=== PATIENT | female | born 1940 | race Caucasian/White ===

== ENCOUNTER 2017-12-04 08:34 | Observation (INO) ==
[2017-12-04] MEDS ORDERED: 0.9 % Sodium Chloride 1,000 ML IVC ONE (09:00)
--- NOTE | 2017-12-04 09:07 | Emergency Department Note ---
Disposition Clinical Impression: Diverticulitis Disposition: Admitted As Inpatient Condition: Good Referrals: Brandon Mathis MD [Primary Care Provider] - Forms: ED Satisfaction Letter, Work/School Release Time of Disposition: 13:44 General Adult HPI - General Chief complaint: ED Abdominal Pain Stated complaint: abd pain, black stool Time Seen by Provider: 12/04/17 08:41 Source: patient Limitations: no limitations Nursing Notes Reviewed: Yes Vital Signs Reviewed: Yes - History of Present Illness HPI Narrative: Patient presents to the ED with a chief complaint of abdominal pain and dark stools. Patient started last night with some lower abdominal pain. Today she passed some dark tarry stool. She seen Dr. selby for the same in the past. His been taken off her blood thinners except for Plavix. Patient denies any history of atrial fibrillation. Pain Scale: 4 - Related Data Home Medications Medication Instructions Recorded Confirmed Cholecalciferol (Vitamin D3) 2,000 unit PO DAILY 05/02/15 11/05/17 [Vitamin D] Clopidogrel [Plavix] 75 mg PO DAILY 05/02/15 11/05/17 Nitroglycerin [Nitrostat] 0.4 mg SL Q5M PRN 05/02/15 11/05/17 [place]-3S/Dha/Epa/Fish Oil [Fish 1 each PO DAILY 05/02/15 11/05/17 Oil 1,200 mg Softgel] Ranitidine HCl [Zantac] 150 mg PO DAILY 05/02/15 11/05/17 Atenolol/Chlorthalidone [Tenoretic 1 each PO DAILY 11/06/16 11/05/17 50 Tablet] Calcium Carbonate/Vitamin D3 1 each PO DAILY 11/06/16 11/05/17 [Calcium 600 + Vit D Tablet] Simvastatin [Zocor] 10 mg PO DAILY 11/06/16 11/05/17 Cetirizine HCl [All Day Allergy] 10 mg PO DAILY 05/07/17 11/05/17 Fluticasone Propionate Nasal 2 spr NS DAILY 05/07/17 11/05/17 [Flonase] Previous Rx's Medication Instructions Recorded Hydroxyurea [Hydrea] 500 mg PO DAILY #30 capsule 06/11/17 Beclomethasone Diprop 80mcg [QVAR 1 puff IH BID #1 inhaler 11/05/17 80 mcg] Allergies Allergy/AdvReac Type Severity Reaction Status Date / Time Iodinated Contrast- Oral and Allergy Hives Verified 12/04/17 08:36 IV Dye [Iodinated Contrast Media - Oral and] latex Allergy Rash Verified 12/04/17 08:36 Nickel Allergy Rash Verified 12/04/17 08:36 Procaine Allergy Rash Verified 12/04/17 08:36 Sulfa (Sulfonamide Allergy Vomiting Verified 12/04/17 08:36 Antibiotics) All systems ED: reviewed and negative except as stated. Constitutional: Denies: fever Cardiovascular: Denies: chest pain Respiratory: Denies: dyspnea Gastrointestinal: Reports: abdominal pain, melena. Denies: nausea Past Medical History - Past Medical History Medical history: Reports: hypertension, myocardial infarction Psychiatric history: Reports: no psych history - Social History Smoking Status: 2nd Hand Smoke Exposure Smokeless Tobacco Status: No Alcohol use: Reports: none Drug use: Reports: none Physical Exam Patient in no acute distress and he wanted him up with stable - General Limitations: no limitations General appearance: alert, in no apparent distress - Head Head exam: atraumatic, normocephalic - Eye Eye exam: Present: normal appearance - ENT ENT exam: normal exam, normal oropharynx - Neck Neck exam: Present: normal inspection - Chest Chest inspection: Present: normal inspection - Respiratory Respiratory exam: Present: normal lung sounds bilaterally - Cardiovascular Cardiovascular exam: Present: regular rate, normal rhythm, normal heart sounds - Abdominal Exam Abdominal exam: Present: soft, tenderness (Left upper). Absent: guarding, rebound - Rectal Exam Behavior Interventionist present during exam: Yes Rectal exam: Present: normal rectal tone, heme (-) stool, other (No stool in rectal vault. Mucus Hemoccult-negative) - Neurological Exam Neurological exam: Present: alert, oriented X3 - Psychiatric Psychiatric exam: Present: normal affect - Skin Skin exam: Present: warm, dry Course Course Narrative: Admit. Patient complains of passing blood by Hemoccult negative here. He will in stable. Has not had a bowel movement since yesterday. We will observe. Cipro/Flagyl ordered. - Reevaluation(s) Reevaluation #1: Patient reevaluated. No bowel movement here. Rectal exam shows no stool in the rectal vault. We will check CT. Time: 12:01 Reevaluation #2: Patient with diverticulitis and a GI bleed. Patient on Plavix. We will admit. Time: 13:34 - Consultations Consultation #1: Dr Alexander accepts Time: 13:44 Vital Signs Temperature 98.2 F 12/04/17 08:36 Pulse Rate 70 12/04/17 08:36 Respiratory Rate 20 12/04/17 08:36 Blood Pressure 135/77 12/04/17 08:36 O2 Sat by Pulse Oximetry 96 12/04/17 08:36 Temperature 98.2 F 12/04/17 08:55 Pulse Rate 70 12/04/17 08:55 Respiratory Rate 20 12/04/17 08:55 Blood Pressure 135/77 12/04/17 08:55 O2 Sat by Pulse Oximetry 96 12/04/17 08:55 Oxygen Delivery Oxygen Delivery Room Air Medical Decision Making - Medical Records Medical records reviewed: Yes I reviewed the patient's medical records. - Lab Data Lab results reviewed: Yes I reviewed the patient's lab results. Result diagrams: 12/04/17 09:00 12/04/17 09:00 Lab Results 12/04/17 12/04/17 12/04/17 Range/Units 09:00 09:00 09:00 WBC 10.1 (4.3-11.1) K/mcL RBC 3.55 L (3.82-4.97) M/mcL Hgb 14.0 (11.5-15.4) g/dL Hct 39.7 (35.3-44.9) % MCV 111.8 H (83.0-100.0) fL MCH 39.4 H (28.0-33.3) pg MCHC 35.3 (31.6-35.5) g/dL RDW 11.2 L (11.5-14.5) % Plt Count 250 (140-400) K/mcL MPV 8.8 L (9.4-12.4) fL Seg Neutrophils % 72.0 % Lymphocytes % 16.0 % Monocytes % 10.0 % Eosinophils % 2.0 % Neutrophils # 7.3 (1.6-8.9) K/mcL Lymphocytes # 1.6 (0.6-4.6) K/mcL Monocytes # 1.0 (0.0-1.3) K/mcL Eosinophils # 0.2 (0.0-0.6) K/mcL Platelet Estimate Normal (Normal) Macrocytosis Present A (Not Present) PT 11.9 (9.4-12.1) Seconds INR 1.1 APTT 36.0 (26.0-36.0) Seconds Sodium 137 (136-145) mEq/L Potassium 3.6 (3.5-5.1) mEq/L Chloride 99 (98-107) mEq/L Carbon Dioxide 26 (23-29) mEq/L BUN 25 H (8-23) mg/dL Creatinine 1.10 (0.60-1.20) mg/dL Est GFR ( Amer) 59 L (> 60) Est GFR (Non-Af Amer) 48 L (> 60) BUN/Creatinine Ratio 23 (6-26) Glucose 110 H (70-105) mg/dL Calculated Osmolality 289 (280-300) Calcium 9.8 (8.6-10.3) mg/dL Total Bilirubin 1.0 (0.3-1.0) mg/dL Direct Bilirubin 0.1 (0.0-0.2) mg/dL Indirect Bilirubin 0.9 (0.0-1.2) mg/dL AST 24 (13-39) Units/L ALT 18 (7-52) Units/L Alkaline Phosphatase 75 (34-104) Units/L Troponin I < 0.03 (< 0.04) ng/mL Serum Total Protein 7.6 (6.4-8.9) g/dL Albumin 4.8 (3.5-5.7) g/dL Globulin 2.8 (2.4-3.5) g/dL Albumin/Globulin Ratio 1.7 (1.1-2.2) Lipase 38 (11-82) Units/L Urine Color (Yellow) Urine Clarity (Clear) Urine pH (5.0-8.0) pH Units Ur Specific [place] (1.010-1.025) Urine Protein (Neg-Trace) mg/dL Urine Glucose (UA) (Normal) mg/dL Urine Ketones (Negative) mg/dL Urine Blood (Negative) Urine Nitrite (Negative) Urine Bilirubin (Negative) Urine Urobilinogen (Normal) mg/dL Ur Leukocyte Esterase (Negative) Ur Culture Indicated? (NO) 12/04/17 Range/Units 11:42 WBC (4.3-11.1) K/mcL RBC (3.82-4.97) M/mcL Hgb (11.5-15.4) g/dL Hct (35.3-44.9) % MCV (83.0-100.0) fL MCH (28.0-33.3) pg MCHC (31.6-35.5) g/dL RDW (11.5-14.5) % Plt Count (140-400) K/mcL MPV (9.4-12.4) fL Seg Neutrophils % % Lymphocytes % % Monocytes % % Eosinophils % % Neutrophils # (1.6-8.9) K/mcL Lymphocytes # (0.6-4.6) K/mcL Monocytes # (0.0-1.3) K/mcL Eosinophils # (0.0-0.6) K/mcL Platelet Estimate (Normal) Macrocytosis (Not Present) PT (9.4-12.1) Seconds INR APTT (26.0-36.0) Seconds Sodium (136-145) mEq/L Potassium (3.5-5.1) mEq/L Chloride (98-107) mEq/L Carbon Dioxide (23-29) mEq/L BUN (8-23) mg/dL Creatinine (0.60-1.20) mg/dL Est GFR ( Amer) (> 60) Est GFR (Non-Af Amer) (> 60) BUN/Creatinine Ratio (6-26) Glucose (70-105) mg/dL Calculated Osmolality (280-300) Calcium (8.6-10.3) mg/dL Total Bilirubin (0.3-1.0) mg/dL Direct Bilirubin (0.0-0.2) mg/dL Indirect Bilirubin (0.0-1.2) mg/dL AST (13-39) Units/L ALT (7-52) Units/L Alkaline Phosphatase (34-104) Units/L Troponin I (< 0.04) ng/mL Serum Total Protein (6.4-8.9) g/dL Albumin (3.5-5.7) g/dL Globulin (2.4-3.5) g/dL Albumin/Globulin Ratio (1.1-2.2) Lipase (11-82) Units/L Urine Color Yellow (Yellow) Urine Clarity Clear (Clear) Urine pH 6.5 (5.0-8.0) pH Units Ur Specific [place] 1.014 (1.010-1.025) Urine Protein Negative (Neg-Trace) mg/dL Urine Glucose (UA) Normal (Normal) mg/dL Urine Ketones Negative (Negative) mg/dL Urine Blood Negative (Negative) Urine Nitrite Negative (Negative) Urine Bilirubin Negative (Negative) Urine Urobilinogen Normal (Normal) mg/dL Ur Leukocyte Esterase Negative (Negative) Ur Culture Indicated? NO (NO) - Radiology Data Radiology results reviewed: Yes I reviewed the patient's radiology results. Abdomen/Pelvis CT 12/04/17 12:00 IMPRESSION: 1. Acute diverticulitis near the splenic flexure. 2. Cholelithiasis. 3. Hiatal hernia. 4. Suspected mucus plugging in the right lower lobe bronchi. 5. Atherosclerotic disease. D/ / Yoan Goins MD / Yoan Goins MD Interpreting Provider: Yoan Goins MD Critical Care Time Critical Care Time: No
[2017-12-04 09:34] LABS: Eosinophils # 0.2 K/mcL (0.0-0.6); Hematocrit 39.7 % (35.3-44.9); Mean Corpuscular HGB Conc 35.3 g/dL (31.6-35.5); Mean Corpuscular Hemoglobin 39.4 pg (28.0-33.3); Mean Corpuscular Volume 111.8 fL (83.0-100.0); Mean Platelet Volume 8.8 fL (9.4-12.4); Platelet Count 250 K/mcL (140-400); Red Blood Count 3.55 M/mcL (3.82-4.97); Red Cell Distribution Width 11.2 % (11.5-14.5)
[2017-12-04 09:38] LABS: INR 1.1; Prothrombin Time 11.9 Seconds (9.4-12.1)
[2017-12-04 09:53] LABS: Troponin I < 0.03 ng/mL (< 0.04)
[2017-12-04 10:20] LABS: Alanine Aminotransferase 18 Units/L (7-52); Albumin 4.8 g/dL (3.5-5.7); Albumin/Globulin Ratio 1.7 (1.1-2.2); Alkaline Phosphatase 75 Units/L (34-104); Aspartate Amino Transferase 24 Units/L (13-39); BUN/Creatinine Ratio 23 (6-26); Bilirubin,Direct 0.1 mg/dL (0.0-0.2); Bilirubin,Indirect 0.9 mg/dL (0.0-1.2); Blood Urea Nitrogen 25 mg/dL (8-23); Calcium 9.8 mg/dL (8.6-10.3); Carbon Dioxide 26 mEq/L (23-29); Chloride 99 mEq/L (98-107); Globulin 2.8 g/dL (2.4-3.5); Glucose 110 mg/dL (70-105); Lipase 38 Units/L (11-82); Osmolality,Calculated 289 (280-300); Potassium 3.6 mEq/L (3.5-5.1); Sodium 137 mEq/L (136-145); Total Protein 7.6 g/dL (6.4-8.9); eGFR For African Americans 59 (> 60); eGFR For Non-African Americans 48 (> 60)
[2017-12-04 10:22] LABS: Lymphocytes # 1.6 K/mcL (0.6-4.6); Neutrophils # 7.3 K/mcL (1.6-8.9)
[2017-12-04 10:24] LABS: Macrocytosis Present (Not Present); Platelet Estimate Normal (Normal)
[2017-12-04 12:09] LABS: Bilirubin,Urine Negative (Negative); Blood,Urine Negative (Negative); Clarity,Urine Clear (Clear); Color,Urine Yellow (Yellow); Glucose,Urine (UA) Normal (Normal); Ketones,Urine Negative (Negative); Leukocyte Esterase,Urine Negative (Negative); Nitrite,Urine Negative (Negative); PH,Urine 6.5 pH Units (5.0-8.0); Protein,Urine Negative (Neg-Trace); Specific Gravity,Urine 1.014 (1.010-1.025); Urobilinogen,Urine Normal (Normal)
[2017-12-04] MEDS ORDERED: MetroNIDAZOLE 500 MG/100 ML 500 MG/100 ML BAG IVPB ONE (13:35)
--- NOTE | 2017-12-04 14:03 | Internal Med History&Physical ---
Date of Encounter: 12/04/17 Time of Encounter: 14:03 Internal Medicine - H&P: HPI Chief complaint: Abdominal pain History of present illness: Ms. Still is a 77 year old female Patient presents to the ED with a chief complaint of abdominal pain and dark stools. Patient started last night with some lower abdominal pain. Today she passed some dark tarry stool. She seen Dr. selby for the same in the past. His been taken off her blood thinners except for Plavix. Patient denies any history of atrial fibrillation. Past Med Surg Social Fam HX - Past Medical History Medical history: hypertension, myocardial infarction Psychiatric history: no psych history - Social History Smoking Status: 2nd Hand Smoke Exposure Smokeless Tobacco Status: No Alcohol use: none Drug use: none - Family History Mother Hx Family GI Disorders: Yes (Colon cancer) Internal Medicine - H&P: Meds Cholecalciferol (Vitamin D3) [Vitamin D3] 2,000 unit PO DAILY 05/02/15 [History] Clopidogrel [Plavix] 75 mg PO DAILY 05/02/15 [History] Nitroglycerin [Nitrostat] 0.4 mg SL Q5M PRN 05/02/15 [History] [place]-3S/Dha/Epa/Fish Oil [Fish Oil 1,200 mg Softgel] 1 cap PO DAILY 05/02/15 [ History] Ranitidine HCl [Zantac] 150 mg PO DAILY 05/02/15 [History] Calcium Carbonate/Vitamin D3 [Calcium 600 + Vit D Tablet] 1 each PO DAILY [History] Simvastatin [Zocor] 10 mg PO DAILY 11/06/16 [History] Cetirizine HCl [All Day Allergy] 10 mg PO DAILY 05/07/17 [History] Hydroxyurea [Hydrea] 500 mg PO DAILY #30 capsule 06/11/17 [Rx] Albuterol Sulfate [Ventolin Hfa] 2 puff IH Q6H PRN 12/04/17 [History] Atenolol/Chlorthalidone [Tenoretic 50 Tablet] 1 tab PO DAILY 12/04/17 [History] Ciprofloxacin [Cipro] 500 mg PO BID #20 tablet 12/06/17 [Rx] Omeprazole [PriLOSEC] 20 mg PO DAILY 30 Days #30 cap 12/06/17 [Rx] metroNIDAZOLE [Flagyl] 500 mg PO TID #30 tablet 12/06/17 [Rx] 3 Allergy/AdvReac Type Severity Reaction Status Date / Time Iodinated Contrast- Oral and Allergy Hives Verified 12/04/17 08:36 IV Dye [Iodinated Contrast Media - Oral and] latex Allergy Rash Verified 12/04/17 08:36 Nickel Allergy Rash Verified 12/04/17 08:36 Procaine Allergy Rash Verified 12/04/17 08:36 Sulfa (Sulfonamide Allergy Vomiting Verified 12/04/17 08:36 Antibiotics) All Systems PM: A 10-system review of systems was performed and is negative for pertinent findings except as documented above in the HPI. - Constitutional Vitals: Temp Pulse Resp BP Pulse Ox 98.2 F 70 20 135/77 96 12/04/17 08:55 12/04/17 08:55 12/04/17 08:55 12/04/17 08:55 12/04/17 08:55 Internal Med - H&P Results - Labs CBC & Chem 7: 12/06/17 04:25 12/06/17 04:25 - Assessment and plan (1) Diverticulitis Status: Acute Assessment and plan: - Abdominal pain due to diverticulitis PLAN: - NPO apart from meds - ABS - EKG in A - Urine C+S - CT abdomen (with or without PO and IV contrast) - GI consult - CBCD, CMP in AM (2) Polycythemia vera Status: Acute Assessment and plan: we will continue home medication (3) Coronary artery disease Status: Acute Assessment and plan: We will cont home meds Qualifiers: Coronary Disease-Associated Artery/Lesion type: unspecified vessel or lesion type [place] vs. transplanted heart: [place] heart Associated angina: angina presence unspecified Qualified Code(s): I25.10 - Atherosclerotic heart disease of [place] coronary artery without angina pectoris (4) Essential (primary) hypertension Status: Acute Assessment and plan: We will cont home meds (5) DVT prophylaxis Status: Acute - Time Spent With Patient Total time spent is greater than 50% in coordination of care (as documented) at patient's floor/unit and/or counseling patient:
[2017-12-04] MEDS ORDERED: Nitroglycerin 0.4 MG TAB.SUBL SL PRN (14:37)
[2017-12-04] MEDS ORDERED: Acetaminophen 325 MG TABLET PO PRN (16:25)
[2017-12-04] MEDS ORDERED: *HR* HYDROcodone/Acet 5/325 mg TABLET PO PRN (16:25)
[2017-12-04] MEDS ORDERED: Naloxone 0.4 MG/ML INJ IVP PRN (16:25)
[2017-12-04] MEDS: MetroNIDAZOLE 500 MG/100 ML 500 MG/100 ML BAG IVPB SCH (16:42)
[2017-12-04] MEDS: 0.9 % Sodium Chloride 1,000 ML IVC SCH (16:47)
[2017-12-05] MEDS: 0.9 % Sodium Chloride 1,000 ML IVC SCH ×3 (00:13→20:13)
[2017-12-05] MEDS: MetroNIDAZOLE 500 MG/100 ML 500 MG/100 ML BAG IVPB SCH ×3 (00:14→22:05)
[2017-12-05 06:43] LABS: Basophils % 0.4 %; Eosinophils # 0.2 K/mcL (0.0-0.6); Eosinophils % 3.3 %; Hematocrit 31.9 % (35.3-44.9); Immature Granulocytes % 0.4 % (0-4); Lymphocytes # 1.5 K/mcL (0.6-4.6); Lymphocytes % 20.5 %; Mean Corpuscular HGB Conc 34.8 g/dL (31.6-35.5); Mean Corpuscular Hemoglobin 39.4 pg (28.0-33.3); Mean Corpuscular Volume 113.1 fL (83.0-100.0); Mean Platelet Volume 8.8 fL (9.4-12.4); Monocytes # 0.8 K/mcL (0.0-1.3); Monocytes % 11.4 %; Neutrophils # 4.7 K/mcL (1.6-8.9); Platelet Count 190 K/mcL (140-400); Red Blood Count 2.82 M/mcL (3.82-4.97); Red Cell Distribution Width 11.3 % (11.5-14.5)
[2017-12-05 06:49] LABS: Hemoglobin 11.1 g/dL (11.5-15.4)
[2017-12-05 06:53] LABS: INR 1.3
[2017-12-05 06:56] LABS: Activated Partial Thrombo Time 32.8 Seconds (26.0-36.0)
--- NOTE | 2017-12-05 07:05 | Electrocardiograph Report ---
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
[2017-12-05 07:06] LABS: Alanine Aminotransferase 16 Units/L (7-52); Albumin 3.2 g/dL (3.5-5.7); Albumin/Globulin Ratio 1.5 (1.1-2.2); Alkaline Phosphatase 59 Units/L (34-104); Aspartate Amino Transferase 15 Units/L (13-39); BUN/Creatinine Ratio 13 (6-26); Bilirubin,Total 0.8 mg/dL (0.3-1.0); Blood Urea Nitrogen 11 mg/dL (8-23); Calcium 8.2 mg/dL (8.6-10.3); Carbon Dioxide 27 mEq/L (23-29); Chloride 107 mEq/L (98-107); Cholesterol 148 mg/dL (< 200); Globulin 2.2 g/dL (2.4-3.5); Glucose 102 mg/dL (70-105); HDL Cholesterol 50 mg/dL (40-59); LDL Cholesterol,Calculated 78 mg/dL (0-99); Magnesium 1.9 mg/dL (1.6-2.6); Osmolality,Calculated 290 (280-300); Phosphorous 2.9 mg/dL (2.7-4.5); Sodium 140 mEq/L (136-145); Total Protein 5.4 g/dL (6.4-8.9); Triglycerides 100 mg/dL (< 150); eGFR For African Americans > 60 (> 60); eGFR For Non-African Americans > 60 (> 60)
[2017-12-05 07:21] LABS: Macrocytosis Present (Not Present); Platelet Estimate Normal (Normal)
[2017-12-05] MEDS: Hydroxyurea 500 MG CAPSULE PO SCH ×2 (08:59→09:09)
[2017-12-05] MEDS ORDERED: (Omega-3s/Dha/Epa/Fish Oil [Fish Oil 1,200 Mg Softgel PO SCH (09:00)
[2017-12-05] MEDS: Loratadine 10 MG TABLET PO SCH (09:07)
[2017-12-05] MEDS: Cholecalciferol (D-3) 1,000 UNIT TABLET PO SCH (09:07)
--- NOTE | 2017-12-05 11:35 | Internal Med Progress Note ---
Date of Encounter: 12/05/17 Time of Encounter: 11:35 - Assessment and plan (1) Acute blood loss anemia Current Visit: Yes Status: Acute Assessment and plan: Patient presented with black tarry stool and now shows acute drop in hemoglobin , concerning for a UGIB or LGIB. CT abdomen/pelvis showed diverticulitis.. - GI was initially to be consulted on day of admission - Consult was placed today but since approaching weekend, it was advised to consult the physician who is digital content coordinator for endoscopy, and so we have consulted Surgery. (noted that patient has diverticulitis and colonoscopy in particular likely not to be done) Stop chlorthalidone Give 1 unit PRBC now since there is an acute drop Surgery consulted (GI consult), recommendations appreciated Treat diverticulitis with Cipro/Flagyl. Monitor VS closely Trend H&H after transfusion. (2) Polycythemia vera Current Visit: No Status: Acute Assessment and plan: we will continue home medication (3) Diverticulitis Current Visit: Yes Status: Acute Assessment and plan: - Abdominal pain due to diverticulitis Continue Cipro/Flagyl ADAT (4) Coronary artery disease Current Visit: Yes Status: Acute Qualifiers: Coronary Disease-Associated Artery/Lesion type: unspecified vessel or lesion type [place] vs. transplanted heart: [place] heart Associated angina: angina presence unspecified Qualified Code(s): I25.10 - Atherosclerotic heart disease of [place] coronary artery without angina pectoris (5) Essential (primary) hypertension Current Visit: Yes Status: Acute (6) DVT prophylaxis Current Visit: Yes Status: Acute - Time Spent With Patient Total time spent is greater than 50% in coordination of care (as documented) at patient's floor/unit and/or counseling patient: - Subjective Interval history: Patient states she hasn't had any episodes of black tarry stools today. Abdominal pain still present but not as severe. - Constitutional Vitals: Temp Pulse Resp BP Pulse Ox 98.1 F 58 14 108/65 95 12/05/17 07:54 12/05/17 07:54 12/05/17 07:54 12/05/17 07:54 12/05/17 07:54 - Head Head exam: Present: atraumatic, normocephalic - Eye Eye exam: Present: PERRL, conjuntiva pink, sclera anicteric Pupils: Present: PERRL - Neck Neck exam general surgery: Present: supple, trachea midline. Absent: lymphadenopathy - Respiratory Respiratory exam: Present: CTAB. Absent: accessory muscle use, rales, rhonchi, wheezes - Cardiovascular Cardiovascular exam: Present: RRR, +S1, +S2. Absent: diastolic murmur, gallop, rubs, systolic murmur - GI/Abdominal GI/Abdominal exam: Present: normal bowel sounds, soft, no peritoneal signs. Absent: distended, tenderness - Extremities Exam Extremities exam: Present: warm, radial pulses palpable and symmetrical. Absent : calf tenderness, cyanotic, pedal edema - Neurological Exam Neurological exam: Present: CN II-XII intact, oriented X3, no focal deficits. Absent: pronater drift, facial droop, speech deficit - Skin Skin exam: Present: dry, intact Internal Medicine: Result - Labs CBC & Chem 7: 12/05/17 05:51 12/05/17 05:51 Labs: Short CBC 12/05/17 Range/Units 05:51 WBC 7.4 (4.3-11.1) K/mcL Hgb 11.1 L D (11.5-15.4) g/dL Hct 31.9 L (35.3-44.9) % Plt Count 190 (140-400) K/mcL Neutrophils # 4.7 (1.6-8.9) K/mcL BMP 12/05/17 05:51 Sodium 140 Potassium 3.0 L Chloride 107 Carbon Dioxide 27 BUN 11 Creatinine 0.85 Glucose 102 Calcium 8.2 L Liver Function 12/05/17 Range/Units 05:51 Total Bilirubin 0.8 (0.3-1.0) mg/dL AST 15 (13-39) Units/L ALT 16 (7-52) Units/L Alkaline Phosphatase 59 (34-104) Units/L Albumin 3.2 L (3.5-5.7) g/dL - ABG Interpretation ABG results: PT/INR, D-dimer PT 14.0 Seconds (9.4-12.1) H 12/05/17 05:51 - VTE Documentation of Mechanical Device: Graduated compression elastic hosiery Consult Discharge Plan - Plan Referrals: Del,Brandon Jackson MD [Primary Care Provider] -
[2017-12-05] MEDS ORDERED: 0.9 % Sodium Chloride 1,000 ML IVC SCH (12:15)
--- NOTE | 2017-12-05 15:51 | General Surgery Consult Note ---
<Deya North - Last Filed: 12/05/17 15:42> Date of Encounter: 12/05/17 Time of Encounter: 14:00 Assessment and Plan (1) Diverticulitis Current Visit: Yes Status: Acute Would recommend continuing IV antibiotics (Cipro and Flagyl), can transition to PO at DC. NPO until discomfort results and then slowly reintroduce PO. If discomfort continues, remain NPO. Ideally, colonoscopy would be performed after acute episode has resolved in approximately 6 to 8 weeks. IV fluid, antibiotic, and dietary status per primary team. (2) Black stool Current Visit: Yes Status: Acute Patient reports 1 episode of dark stool prior to admission to the hospital. Her vital signs are stable, she denies coffee ground emesis or any prior episodes of melena, hematochezia, or bright red blood. She reports she is supposed to see Dr. Larios and have a repeat colonoscopy in January. Given she is asymptomatic, this was an isolated episode, and she has planned follow-up, would recommend EGD and colonoscopy per her G.I. specialist in approximately 6 to 8 weeks when she is over her acute episode of diverticulitis. There is no indication for EGD or colonoscopy this admission. Anticipate Surgery will sign off at this time. Thank you for allowing us to participate in France's care. Please call with any further questions or concerns. -Final recommendations pending attending attestation. (3) Polycythemia vera Current Visit: No Status: Acute History of Present Illness Consult date: 12/05/17 (Dr. Kurtis Walters) Reason for consult: endoscopy Requesting physician: Italo Broderick History of present illness: [place] is a 77-year-old female with past medical history is significant for polycythemia vera, ASHD, acute blood loss anemia (status post G.I. bleed while on Plavix and aspirin so she was therefore kept on Plavix only) , and essential hypertension. She presented to the hospital on 12/04/2017 with complaints of left lower quadrant pain. Patient reports her left lower quadrant pain began in the low abdomen on Friday. It was followed by constant pain in the left lower quadrant which felt sharp and stabbing. She had associated nausea and diarrhea. She reports a one episode of black stool prior to coming to the hospital. She reports she has continued to have diarrhea but there has no longer been any discoloration. She reports she last had a colonoscopy in 2012, by Dr. romero, and noted that they were unable to find any sources of bleeding. She reports she follows with Dr. Wisdom for her polycythemia vera. Her hospital course thus far has included CT of the abdomen and pelvis which revealed acute diverticulitis near the splenic flexure, and laboratory studies which revealed a decrease in hemoglobin from 14.0 to 11.1. She has received 1.2 L of fluid while on the floor and 1 L while in the emergency department. She was on a clear liquid diet but has since been made in PO. She reports that yesterday when she had her clear liquids she did have continue left lower quadrant pain but has not had any pain today. Presently she reports her left lower quadrant pain is resolved as above, has nausea, diarrhea, and intermittent cramping. She denies fever, chills, headache , dizziness, chest pain, shortness of breath or feelings of generalized weakness. She denies urinary signs or symptoms. She denies any further episodes of black, bloody, or tarry stool. Past Med Surg Social Fam HX - Past Medical History Medical history: hypertension, myocardial infarction Psychiatric history: no psych history - Social History Smoking Status: 2nd Hand Smoke Exposure Smokeless Tobacco Status: No Alcohol use: none Drug use: none - Family History Mother Hx Family GI Disorders: Yes (Colon cancer) Medications and Allergies Cholecalciferol (Vitamin D3) [Vitamin D] 2,000 unit PO DAILY 05/02/15 [History] Clopidogrel [Plavix] 75 mg PO DAILY 05/02/15 [History] Nitroglycerin [Nitrostat] 0.4 mg SL Q5M PRN 05/02/15 [History] [place]-3S/Dha/Epa/Fish Oil [Fish Oil 1,200 mg Softgel] 1 cap PO DAILY 05/02/15 [ History] Ranitidine HCl [Zantac] 150 mg PO DAILY 05/02/15 [History] Calcium Carbonate/Vitamin D3 [Calcium 600 + Vit D Tablet] 1 each PO DAILY [History] Simvastatin [Zocor] 10 mg PO DAILY 11/06/16 [History] Cetirizine HCl [All Day Allergy] 10 mg PO DAILY 05/07/17 [History] Hydroxyurea [Hydrea] 500 mg PO DAILY #30 capsule 11/29/17 [Rx] Albuterol Sulfate [Ventolin Hfa] 2 puff IH Q6H PRN 12/04/17 [History] Atenolol/Chlorthalidone [Tenoretic 50 Tablet] 1 tab PO DAILY 12/04/17 [History] 3 Allergy/AdvReac Type Severity Reaction Status Date / Time Iodinated Contrast- Oral and Allergy Hives Verified 12/04/17 08:36 IV Dye [Iodinated Contrast Media - Oral and] latex Allergy Rash Verified 12/04/17 08:36 Nickel Allergy Rash Verified 12/04/17 08:36 Procaine Allergy Rash Verified 12/04/17 08:36 Sulfa (Sulfonamide Allergy Vomiting Verified 12/04/17 08:36 Antibiotics) Review of Systems All systems PM: reviewed and no additional remarkable complaints except as stated All systems PM: The remainder of the systems were reviewed and are negative General Surgery Exam Initial Vital Signs Temp Pulse Resp BP Pulse Ox 98.2 F 70 20 135/77 96 12/04/17 08:36 12/04/17 08:36 12/04/17 08:36 12/04/17 08:36 12/04/17 08:36 VITAL SIGNS: Reviewed. See [facility] GENERAL: In no apparent distress. HEENT: Normocephalic, atraumatic, pupils are equal and reactive, extraocular motions intact, oropharynx is pink and moist, there is no neck adenopathy or JVD noted. CHEST/RESPIRATORY: The thorax is free from signs of trauma. Lung sounds: clear to auscultation, normal respiratory effort CARDIAC: Regular rate and rhythm. Normal S1 and S2, without murmurs, gallops, or rubs. VASCULAR: No Edema. 2+ peripheral pulses. ABDOMEN: soft, nontender, normal active bowel sounds. MUSCULOSKELETAL: Good range of motion of all major joints. Extremities without clubbing, cyanosis or edema. NEUROLOGIC EXAM: Alert and oriented x 3. Speech normal. Follows commands. PSYCHIATRIC: Mood normal. SKIN: No rash or lesions. Exam Initial Vital Signs Temp Pulse Resp BP Pulse Ox 98.2 F 70 20 135/77 96 12/04/17 08:36 12/04/17 08:36 12/04/17 08:36 12/04/17 08:36 12/04/17 08:36 Results - Labs 12/05/17 05:51 12/05/17 05:51 Abnormal lab results RBC 2.82 M/mcL (3.82-4.97) L 12/05/17 05:51 Hgb 11.1 g/dL (11.5-15.4) L D 12/05/17 05:51 Hct 31.9 % (35.3-44.9) L 12/05/17 05:51 MCV 113.1 fL (83.0-100.0) H 12/05/17 05:51 MCH 39.4 pg (28.0-33.3) H 12/05/17 05:51 RDW 11.3 % (11.5-14.5) L 12/05/17 05:51 MPV 8.8 fL (9.4-12.4) L 12/05/17 05:51 Macrocytosis Present (Not Present) A 12/05/17 05:51 PT 14.0 Seconds (9.4-12.1) H 12/05/17 05:51 Potassium 3.0 mEq/L (3.5-5.1) L 12/05/17 05:51 Calcium 8.2 mg/dL (8.6-10.3) L 12/05/17 05:51 Serum Total Protein 5.4 g/dL (6.4-8.9) L 12/05/17 05:51 Albumin 3.2 g/dL (3.5-5.7) L 12/05/17 05:51 Globulin 2.2 g/dL (2.4-3.5) L 12/05/17 05:51 Diabetes panel 12/05/17 Range/Units 05:51 Sodium 140 (136-145) mEq/L Potassium 3.0 L (3.5-5.1) mEq/L Chloride 107 (98-107) mEq/L Carbon Dioxide 27 (23-29) mEq/L BUN 11 (8-23) mg/dL Creatinine 0.85 (0.60-1.20) mg/dL Glucose 102 (70-105) mg/dL Calcium 8.2 L (8.6-10.3) mg/dL AST 15 (13-39) Units/L ALT 16 (7-52) Units/L Alkaline Phosphatase 59 (34-104) Units/L Albumin 3.2 L (3.5-5.7) g/dL Triglycerides 100 (< 150) mg/dL HDL Cholesterol 50 (40-59) mg/dL Calcium panel 12/05/17 Range/Units 05:51 Calcium 8.2 L (8.6-10.3) mg/dL Phosphorus 2.9 (2.7-4.5) mg/dL Albumin 3.2 L (3.5-5.7) g/dL Pituitary panel 12/05/17 Range/Units 05:51 Sodium 140 (136-145) mEq/L Potassium 3.0 L (3.5-5.1) mEq/L Chloride 107 (98-107) mEq/L Carbon Dioxide 27 (23-29) mEq/L BUN 11 (8-23) mg/dL Creatinine 0.85 (0.60-1.20) mg/dL Glucose 102 (70-105) mg/dL Calcium 8.2 L (8.6-10.3) mg/dL Adrenal panel 12/05/17 Range/Units 05:51 Sodium 140 (136-145) mEq/L Potassium 3.0 L (3.5-5.1) mEq/L Chloride 107 (98-107) mEq/L Carbon Dioxide 27 (23-29) mEq/L BUN 11 (8-23) mg/dL Creatinine 0.85 (0.60-1.20) mg/dL Glucose 102 (70-105) mg/dL Calcium 8.2 L (8.6-10.3) mg/dL Total Bilirubin 0.8 (0.3-1.0) mg/dL AST 15 (13-39) Units/L ALT 16 (7-52) Units/L Alkaline Phosphatase 59 (34-104) Units/L Albumin 3.2 L (3.5-5.7) g/dL All other labs normal. - Imaging CT scan - abdomen: report reviewed CT scan - pelvis: report reviewed Consult Discharge Plan - Plan Referrals: Brandon Mathis MD [Primary Care Provider] - <Kurtis Walters - Last Filed: 12/06/17 14:31> Date of Encounter: 12/06/17 Review of Systems All systems PM: The remainder of the systems were reviewed and are negative General Surgery Exam Initial Vital Signs Temp Pulse Resp BP Pulse Ox 98.2 F 70 20 135/77 96 12/04/17 08:36 12/04/17 08:36 12/04/17 08:36 12/04/17 08:36 12/04/17 08:36 Exam Initial Vital Signs Temp Pulse Resp BP Pulse Ox 98.2 F 70 20 135/77 96 12/04/17 08:36 12/04/17 08:36 12/04/17 08:36 12/04/17 08:36 12/04/17 08:36 Results - Labs 12/06/17 04:25 12/06/17 04:25 Abnormal lab results RBC 2.94 M/mcL (3.82-4.97) L 12/06/17 04:25 Hgb 11.0 g/dL (11.5-15.4) L 12/06/17 04:25 Hct 32.7 % (35.3-44.9) L 12/06/17 04:25 MCV 111.2 fL (83.0-100.0) H 12/06/17 04:25 MCH 37.4 pg (28.0-33.3) H 12/06/17 04:25 MPV 8.8 fL (9.4-12.4) L 12/06/17 04:25 Macrocytosis Present (Not Present) A 12/06/17 04:25 PT 14.0 Seconds (9.4-12.1) H 12/05/17 05:51 Chloride 111 mEq/L (98-107) H 12/06/17 04:25 Calcium 8.4 mg/dL (8.6-10.3) L 12/06/17 04:25 Serum Total Protein 5.4 g/dL (6.4-8.9) L 12/05/17 05:51 Albumin 3.2 g/dL (3.5-5.7) L 12/05/17 05:51 Globulin 2.2 g/dL (2.4-3.5) L 12/05/17 05:51 Diabetes panel 12/06/17 Range/Units 04:25 Sodium 142 (136-145) mEq/L Potassium 3.5 (3.5-5.1) mEq/L Chloride 111 H (98-107) mEq/L Carbon Dioxide 25 (23-29) mEq/L BUN 9 (8-23) mg/dL Creatinine 0.82 (0.60-1.20) mg/dL Glucose 95 (70-105) mg/dL Calcium 8.4 L (8.6-10.3) mg/dL Calcium panel 12/06/17 Range/Units 04:25 Calcium 8.4 L (8.6-10.3) mg/dL Pituitary panel 12/06/17 Range/Units 04:25 Sodium 142 (136-145) mEq/L Potassium 3.5 (3.5-5.1) mEq/L Chloride 111 H (98-107) mEq/L Carbon Dioxide 25 (23-29) mEq/L BUN 9 (8-23) mg/dL Creatinine 0.82 (0.60-1.20) mg/dL Glucose 95 (70-105) mg/dL Calcium 8.4 L (8.6-10.3) mg/dL Adrenal panel 12/06/17 Range/Units 04:25 Sodium 142 (136-145) mEq/L Potassium 3.5 (3.5-5.1) mEq/L Chloride 111 H (98-107) mEq/L Carbon Dioxide 25 (23-29) mEq/L BUN 9 (8-23) mg/dL Creatinine 0.82 (0.60-1.20) mg/dL Glucose 95 (70-105) mg/dL Calcium 8.4 L (8.6-10.3) mg/dL All other labs normal. - Attending Attestation I have personally seen and examined the patient. I have reviewed pertinent labs , imaging, progress notes, including this one. I agree with the above assessment and plan. 77F with episodic dark tarry stools; has known diverticulosis; currently with diveticulitis; plans colonosocpy with GI in 6 weeks; available should surgical evaluation or intervention be needed in the future.
[2017-12-05] MEDS ORDERED: 0.9 % Sodium Chloride Mini Bag 100 ML ONE (16:18)
[2017-12-05] MEDS: Pantoprazole 40 MG in 0.9 % Sodium Chloride Mini Bag 100 ML IVC SCH ×2 (19:18→20:08)
[2017-12-05 20:07] LABS: Hematocrit 34.7 % (35.3-44.9); Hemoglobin 12.1 g/dL (11.5-15.4)
[2017-12-05 20:45] LABS: Bilirubin,Urine Negative (Negative); Blood,Urine Negative (Negative); Clarity,Urine Clear (Clear); Color,Urine Yellow (Yellow); Glucose,Urine (UA) Normal (Normal); Ketones,Urine Negative (Negative); Leukocyte Esterase,Urine Negative (Negative); Nitrite,Urine Negative (Negative); Protein,Urine Negative (Neg-Trace); Specific Gravity,Urine 1.015 (1.010-1.025); Urobilinogen,Urine Normal (Normal)
[2017-12-05 20:48] LABS: Bacteria,Urine Few per hpf (None-Few); Squamous Epithelial Cell,Urine Few per lpf (None-Few)
[2017-12-06] MEDS: Pantoprazole 40 MG in 0.9 % Sodium Chloride Mini Bag 100 ML IVC SCH ×2 (01:23→06:14)
[2017-12-06 04:54] LABS: Basophils % 0.3 %; Eosinophils # 0.4 K/mcL (0.0-0.6); Eosinophils % 6.4 %; Hematocrit 32.7 % (35.3-44.9); Immature Granulocytes % 0.2 % (0-4); Lymphocytes # 1.4 K/mcL (0.6-4.6); Lymphocytes % 23.5 %; Mean Corpuscular HGB Conc 33.6 g/dL (31.6-35.5); Mean Corpuscular Hemoglobin 37.4 pg (28.0-33.3); Mean Corpuscular Volume 111.2 fL (83.0-100.0); Mean Platelet Volume 8.8 fL (9.4-12.4); Monocytes # 0.7 K/mcL (0.0-1.3); Monocytes % 12.4 %; Neutrophils # 3.3 K/mcL (1.6-8.9); Platelet Count 172 K/mcL (140-400); Red Blood Count 2.94 M/mcL (3.82-4.97); Segmented Neutrophils % 57.2 %
[2017-12-06 05:03] LABS: BUN/Creatinine Ratio 11 (6-26); Blood Urea Nitrogen 9 mg/dL (8-23); Calcium 8.4 mg/dL (8.6-10.3); Carbon Dioxide 25 mEq/L (23-29); Chloride 111 mEq/L (98-107); Glucose 95 mg/dL (70-105); Osmolality,Calculated 292 (280-300); Potassium 3.5 mEq/L (3.5-5.1); Sodium 142 mEq/L (136-145); eGFR For African Americans > 60 (> 60); eGFR For Non-African Americans > 60 (> 60)
[2017-12-06] MEDS: MetroNIDAZOLE 500 MG/100 ML 500 MG/100 ML BAG IVPB SCH ×2 (06:14→14:51)
[2017-12-06 06:38] LABS: Macrocytosis Present (Not Present); Platelet Estimate Normal (Normal)
[2017-12-06] MEDS: Loratadine 10 MG TABLET PO SCH (08:45)
[2017-12-06] MEDS: Cholecalciferol (D-3) 1,000 UNIT TABLET PO SCH (08:45)
[2017-12-06 10:38] VITALS: BP 156/91
[2017-12-06] MEDS: 0.9 % Sodium Chloride 1,000 ML IVC SCH (11:25)
--- NOTE | 2017-12-06 14:55 | Discharge Summary ---
- NOTES TO OUTPATIENT PROVIDER Notes to Outpatient Provider: - Follow-up with Gastroenterology - Patient agrees to call office to schedule a follow-up appointment. - Follow-up with PCP in 2-3 days - get a CBC. Recheck BMP for brief episode of hypokalemia ( likely from decreased PO) . - Hold Plavix to 2-3 days prior to restarting. Orders not resulted at time of discharge: Pending orders 12/05/17 18:13 Transfusion Reaction [BBK] Stat 12/07/17 04:00 BMP [Basic Metabolic Panel] AM 0400 Complete Blood Count [HEME] AM 0400 12/08/17 04:00 BMP [Basic Metabolic Panel] AM 0400 Complete Blood Count [HEME] AM 0400 Date of Encounter: 12/06/17 Time of Encounter: 14:50 - Discharge Diagnosis (1) Acute blood loss anemia Priority: Primary Status: Acute Assessment and Plan: Surgery was consulted and deemed not EGD candidate and no colonoscopy can be done until about 6-8 weeks because of diverticulitis infection. Hemoglobin has been stable and vital signs stable as well. (2) Diverticulitis Priority: Secondary Status: Acute Assessment and Plan: She advanced diet and is continuing Cipro/Flagyl on discharge. (3) Polycythemia vera Priority: Secondary Status: Acute Assessment and Plan: we will continue home medication (4) Coronary artery disease Priority: Secondary Status: Acute Assessment and Plan: Hold plavix for 3 days prior to restart. Qualifiers: Coronary Disease-Associated Artery/Lesion type: unspecified vessel or lesion type [place] vs. transplanted heart: che[place] heart Associated angina: angina presence unspecified Qualified Code(s): I25.10 - Atherosclerotic heart disease of [place] coronary artery without angina pectoris (5) Essential (primary) hypertension Priority: Secondary Status: Acute (6) DVT prophylaxis Priority: Secondary Status: Acute Hospital course: Ms. Still is a 77 year old female Patient presents to the ED with a chief complaint of abdominal pain and dark stools. Patient started last night with some lower abdominal pain. Today she passed some dark tarry stool. Has been taken off her blood thinners except for Plavix. Patient denies any history of atrial fibrillation. She states she had workup for GIB in the past about 2014 and gets follow-up for this. On admission she denied chest pain, SOB, n/v. She had CT of abdomen and pelvis that showed diverticulitis and started on Cipro /Flagyl. She was admitted for further monitoring. Her initial hemoglobin on admission was 14. One day later it was 11. She was transfused one unit of PRBC. Surgery was consulted and stated that no EGD warrented since it was only one single episode of melena and also gets regular follow-up. Furthermore cannot do colonoscopy because of diverticulitis and it was recommended she do one in 6-8 weeks. Patient was able to advance diet. Hemoglobin staye dstable in 11-12 range, and she remained hemodynamically stable. Patient was discharged home in stable condition. Agrees to have scheduled follow-up with GI she will call as soon as holiday weekend finished. Also home with Cipro, Flagyl, and course of prilosec, and repeat CBC in 3 days. Plavix to be held for 3 days on discharge. - Time Spent with Patient Total time spent providing and/or coordinating discharge services: - Discharge Medications Home Medications: Cholecalciferol (Vitamin D3) [Vitamin D3] 2,000 unit PO DAILY 05/02/15 [History] Clopidogrel [Plavix] 75 mg PO DAILY 05/02/15 [History] Nitroglycerin [Nitrostat] 0.4 mg SL Q5M PRN 05/02/15 [History] [place]-3S/Dha/Epa/Fish Oil [Fish Oil 1,200 mg Softgel] 1 cap PO DAILY 05/02/15 [ History] Ranitidine HCl [Zantac] 150 mg PO DAILY 05/02/15 [History] Calcium Carbonate/Vitamin D3 [Calcium 600 + Vit D Tablet] 1 each PO DAILY [History] Simvastatin [Zocor] 10 mg PO DAILY 11/06/16 [History] Cetirizine HCl [All Day Allergy] 10 mg PO DAILY 05/07/17 [History] Hydroxyurea [Hydrea] 500 mg PO DAILY #30 capsule 06/11/17 [Rx] Albuterol Sulfate [Ventolin Hfa] 2 puff IH Q6H PRN 12/04/17 [History] Atenolol/Chlorthalidone [Tenoretic 50 Tablet] 1 tab PO DAILY 12/04/17 [History] Ciprofloxacin [Cipro] 500 mg PO BID #20 tablet 12/06/17 [Rx] Omeprazole [PriLOSEC] 20 mg PO DAILY 30 Days #30 cap 12/06/17 [Rx] metroNIDAZOLE [Flagyl] 500 mg PO TID #30 tablet 12/06/17 [Rx] Allergies/Adverse Reactions: 3 Allergy/AdvReac Type Severity Reaction Status Date / Time Iodinated Contrast- Oral and Allergy Hives Verified 12/04/17 08:36 IV Dye [Iodinated Contrast Media - Oral and] latex Allergy Rash Verified 12/04/17 08:36 Nickel Allergy Rash Verified 12/04/17 08:36 Procaine Allergy Rash Verified 12/04/17 08:36 Sulfa (Sulfonamide Allergy Vomiting Verified 12/04/17 08:36 Antibiotics) Date of admission: 12/04/17 16:25 Primary care physician: Brandon Mathis MD Consults: 12/05/17 12:45 Consult to Surgery [CONS] Routine Consulting Provider: [facility] Reason for Consult: Black tarry stool, acute anemia Call Completed: Yes 12/05/17 14:42 Consult to Invasive Line Access Team [CONS] Routine Reason for Consult: poor access Line Type: EPIV Discharging clinician: Italo Broderick - Constitutional Vitals: Temp Pulse Resp BP Pulse Ox 98.4 F 67 14 156/91 97 12/06/17 10:37 12/06/17 10:37 12/06/17 10:37 12/06/17 10:37 12/06/17 10:37 - Head Head exam: Present: atraumatic, normocephalic - Eye Eye exam: Present: PERRL, conjuntiva pink, sclera anicteric Pupils: Present: PERRL - Neck Neck exam general surgery: Present: supple, trachea midline. Absent: lymphadenopathy - Respiratory Respiratory exam: Present: CTAB. Absent: accessory muscle use, rales, rhonchi, wheezes - Cardiovascular Cardiovascular exam: Present: RRR, +S1, +S2. Absent: diastolic murmur, gallop, rubs, systolic murmur - GI/Abdominal GI/Abdominal exam: Present: normal bowel sounds, soft, no peritoneal signs. Absent: distended, tenderness - Extremities Exam Extremities exam: Present: warm, radial pulses palpable and symmetrical. Absent : calf tenderness, cyanotic, pedal edema - Neurological Exam Neurological exam: Present: CN II-XII intact, oriented X3, no focal deficits. Absent: pronater drift, facial droop, speech deficit - Skin Skin exam: Present: dry, intact - Patient Status Disposition: Home, Self-Care Condition: Good Functional capacity at discharge: independent ambulation Overall status at discharge: patient is back to baseline - Discharge Instructions Follow Up With: Brandon Mathis MD [Primary Care Provider] - - Diet and Activity Activity: increase activity as tolerated Diet: other (Advance diet as tolerated, high fiber.) - VTE Documentation of Mechanical Device: Graduated compression elastic hosiery
[2017-12-06] MEDS ORDERED: Pantoprazole 40 MG VIAL IVP SCH (18:00)
== END 2017-12-06 16:55 | disposition home or self-care (01) | DRG 392 ==
LOC: 3ANU 08:34 → EMEROO 08:34 → 3ANU 14:13
PROVIDERS: ADMIT Hospitalist; ATTEND Hospitalist